=== PATIENT | female | born 1970 | race Caucasian/White ===

== ENCOUNTER → 2018-11-07 | Outpatient (CLI) | payer MEDICARE, OTHER ==
--- NOTE | 2018-11-08 11:30 | RAD ---
EXAM DESCRIPTION: Radiographs of the right Shoulder:XR/CR/DR CLINICAL HISTORY: M25.511 COMPARISON: None TECHNIQUE: 4 views. Internal and external rotation. Scapular "Y" image. Axillary image. FINDINGS: No fracture right shoulder.. Normal bone density. AC joint minimal downsloping of the lateral acromion. Glenohumeral joint unremarkable. No abnormal radiodense objects in the soft tissues or joint spaces. IMPRESSION: No radiographic evidence of acute bony or joint margin abnormality right shoulder. Electronically signed by: Joe Huertas MD 11/08/2018 11:27 AM CDT
== END ==
LOC: RAD 08:25
PROVIDERS: ATTEND Orthopaedic Surgery
DX: M25.511 Pain in right shoulder (principal)